=== PATIENT | female | born 1965 | race Caucasian/White ===

== ENCOUNTER 2019-09-05 15:24 | Outpatient (CLI) | payer OTHER ==
--- NOTE | 2019-09-05 16:16 | CT ---
CT OF THE CHEST WITH IV CONTRAST INDICATION: History of breast cancer with right-sided supraclavicular mass; bilateral supraclavicular regions have been swollen for years but the right side seems more swollen as per the patient. COMPARISON: None FINDINGS: CHEST: Lungs: There are tree-in-bud nodules seen within the apical segment of the right lower lobe on image 51 of series 3. There is some tree-in-bud nodular opacities within the posterior medial segment of the left lower lobe as well as the posterior medial segment of the right lower lobe. Pleural space: No effusion. Mediastinum: No pathologically enlarged mediastinal, hilar or left axillary lymphadenopathy is eviden t. Within the right subclavicular region there is a 2.8 x 1.2 cm enlarged lymph node. There is a 1.7 cm lymph node within the right axilla. There is a 1.9 cm lymph node within the right axilla. Ther e are numerous mildly prominent lymph nodes within the right axillary region. No supraclavicular lymphadenopathy is evident. There is a partially calcified nodule within the inferior pole the right thyroid gland. Upper abdomen:There is prominent fatty infiltration of the liver. Osseous structures: There is a mixed lytic and sclerotic lesion within the posterior and central aspe ct of T12. This measures 1.9 cm. There is a suspected bony hemangioma within the left aspect of L2. Similar appearing lucency suspicious for hemangioma is seen within the manubrium. 2 such lesions are present, one measuring 1.2 cm and one measuring 0.9 cm. There is an additional suspicious lytic lesion within the right aspect of the T10 vertebra on image 67 of series 5 measuring 0.6 cm. There i s scattered degenerative and osteoarthritic changes. Soft tissues:Normal. IMPRESSION: 1. Enlarged lymph nodes of the right axillary region and right subclavicular region are suspicious fo r malignant lymphadenopathy. Lytic lesions involving T10 and T12 are suspicious for osseous metastatic disease. Dedicated PET/CT is recommended for further characterization. 2. Tree-in-bud nodularity involving both lower lobes is suspicious for peripheral bronchiolitis. Mitch mmend correlation with the patient's clinical symptoms and appropriate therapy if necessary. Follow-up CT examination in 6-8 weeks is recommended to document resolution as no lymphobronchial met astatic disease cannot be entirely excluded. 3. Prominent fatty infiltration of the liver. 4. Suspected bony hemangioma is of L2 and the manubrium.
== END 2019-09-05 15:25 | disposition home or self-care (01) ==
LOC: BICCT 15:24
PROVIDERS: ATTEND Family Medicine
DX: R22.2 Localized swelling, mass and lump, trunk (principal); R60.0 Localized edema
CPT/HCPCS: 71260

== ENCOUNTER 2019-09-14 07:42 | Outpatient (CLI) | payer OTHER ==
--- NOTE | 2019-09-14 09:39 | PET ---
PET SCAN WITH CT ATTENUATION CORRECTION: HISTORY: Abnormal chest CT. Enlarged lymph nodes in the right axilla as well as abnormal lesions in the thorac ic and lumbar vertebrae. Unknown primary. TECHNIQUE: PET scan with CT attenuation correction is performed from base of the brain to the proximal thighs fo llowing the intravenous administration of 11.8 mCi which is of [id number]. FINDINGS: Head and neck: No abnormal FDG localization. Chest: No abnormal FDG localization in the mediastinum or lung parenchyma. Multiple hypermetabolic le ft axillary lymph nodes with a maximum SUV ranging between 3.7 and 6.0. Abdomen pelvis: No abnormal FDG localization. Osseous structures: Increased FDG localization of the T11 vertebral body with a maximum SUV of 3.1, T 12 with a maximum SUV of 3.5, L3 with a maximum SUV of 3.4 and S1 with a maximum SUV of 4.1. IMPRESSION: 1. Hypermetabolic right axillary lymph nodes which may be amenable to ultrasound-guided biopsy. 2. Multifocal hypermetabolic foci in the distal thoracic and lumbar spine as well as the sacrum as de scribed above. Transcribed Date/Time: 09/14/2019 9:55 AM
== END 2019-09-14 07:43 | disposition home or self-care (01) ==
LOC: PET 07:42
PROVIDERS: ATTEND Internal Medicine Hematology & Oncology
DX: C50.919 Malignant neoplasm of unspecified site of unspecified female breast (principal); C79.51 Secondary malignant neoplasm of bone
CPT/HCPCS: 78815; A9552

== ENCOUNTER 2019-09-18 12:10 | Day surgery (SDC) | payer OTHER ==
[2019-09-18 13:14] LABS: PTT 24.4 SEC (22.9-36.1); Prothrombin Time 13.5 SEC (12.0-14.7)
[2019-09-18] MEDS ORDERED: Lidocaine 1% PF 5 ML VIAL ONE (13:14)
--- NOTE | 2019-09-18 14:04 | ULT ---
ULTRASOUND-GUIDED RIGHT AXILLARY LYMPH NODE BIOPSY: CLINICAL HISTORY: Right axillary adenopathy. PROCEDURE: Informed consent was obtained and the patient was placed in the supine position, the skin and soft ti ssues prepped and draped in standard sterile fashion and topical anesthesia achieved with 1% lidocaine. Subsequently, utilizing a 20-gauge needle, 2 separate FNA procedures under ultrasound guid ance were performed, with appropriate location confirmed with real-time sonographic imaging and imaging was stored fragmentation. The specimens were provided to the attending pathologist and were d eemed adequate for interpretation. All devices were removed from the patient. Hemostasis was achieved. No procedural complications were evident. The patient was discharged in stable condition. IMPRESSION: Technically successful ultrasound-guided biopsy of right axillary lymph nodes. Pathology results are pending. Transcribed Date/Time: 09/18/2019 2:10 PM
[2019-09-18 15:16] VITALS: BP 172/96; TEMP 98.6
[2019-09-18 15:25] VITALS: BMI 30.9
== END 2019-09-18 13:55 | disposition home or self-care (01) ==
LOC: ULT 12:10
PROVIDERS: ATTEND Internal Medicine Hematology & Oncology
PROC: BW41ZZZ Ultrasonography of Abdomen and Pelvis (ICD-10-PCS; principal; 2019-09-18)
PROC: 07JN3ZZ Inspection of Lymphatic, Percutaneous Approach (ICD-10-PCS; principal; 2019-09-18)
DX: R59.0 Localized enlarged lymph nodes (principal); Z79.899 Other long term (current) drug therapy
CPT/HCPCS: 38505; 85610; 85730; 88173; 88184; 88305; 88333; 88334; J2001

== ENCOUNTER 2019-10-13 21:33 | Emergency (ER) | payer OTHER ==
[2019-10-13] MEDS ORDERED: Adacel (T-DAP) 0.5 ML SYRINGE ONE (22:22)
--- NOTE | 2019-10-13 22:29 | RAD ---
XR Shoulder Lt 3 View STANDARD HISTORY: Injury to shoulder COMPARISON: None. FINDINGS: There is a nondisplaced fracture of the left humeral neck and greater tuberosity. IMPRESSION: Left humeral neck and greater tuberosity fracture.
[2019-10-13] MEDS ORDERED: Lidocaine 1% w/Epinephrine 1:100K 20 ML VIAL ONE (22:43)
[2019-10-13] MEDS ORDERED: HYDROcodone/Acetaminophen 10/325 mg Tablet ONE (22:46)
== END 2019-10-13 23:27 | disposition home or self-care (01) ==
LOC: ERS 21:33
DX: S42.255A Nondisplaced fracture of greater tuberosity of left humerus, initial encounter for closed fracture (principal); S01.01XA Laceration without foreign body of scalp, initial encounter; S01.112A Laceration without foreign body of left eyelid and periocular area, initial encounter; I10 Essential (primary) hypertension; Z23 Encounter for immunization; Z79.899 Other long term (current) drug therapy; W01.0XXA Fall on same level from slipping, tripping and stumbling without subsequent striking against object, initial encounter
CPT/HCPCS: 12013; 90471; 90715

== ENCOUNTER 2020-10-31 14:01 | Outpatient (CLI) | payer OTHER ==
--- NOTE | 2020-10-31 14:26 | RAD ---
RIGHT HIP TWO VIEWS: 10/31/20 HISTORY: Hip pain. No evidence of fracture. No osseous abnormality. Joint space is maintained. IMPRESSION: No acute findings. POS: AH
== END 2020-10-31 14:02 | disposition home or self-care (01) ==
LOC: BICRAD 14:01
PROVIDERS: ATTEND Family Medicine
DX: M25.551 Pain in right hip (principal)

== ENCOUNTER 2020-12-16 11:32 | Outpatient (CLI) | payer OTHER ==
--- NOTE | 2020-12-16 14:39 | PET ---
Nuclear medicine FDG PET/CT: (Positron emission tomography and computed tomography) DATE: 12/16/2020 HISTORY: 55-year-old female with metastatic breast cancer. Osseous metastasis. Follow-up for response to treatment. Restaging. C 50.211, C 79.51 COMPARISON: 09/14/2019 TECHNIQUE: IV injection of F-18 fluorodeoxyglucose (FDG) dose: 11.1 mCi. PET scan and attenuation correction CT performed from skull base to proximal thighs. FINDINGS: SUV (standard uptake values) numbers given are maximum SUVs. QCLR used. Attenuation correction CT demonstrates a new finding of a large number of focal sclerotic osseous les ions representing osteoblastic metastases. These are mostly of relatively low FDG uptake suggesting treated, sclerotic metastatic lesions. For example, there was a lesion at the T12 vertebral body with SUV of 5.3 previously. Currently, T12 has new extensive sclerotic lesions, but SUV of 2.3 (below threshold of 2.5). L3 had previous SUV of 5.6, but currently only 2.5, with new extensive osteoblastic lesions. Previous S2 sacral body lesion at SUV of 6.6. Currently, it has become sclerotic, with SUV of 2.3, be low threshold. Multiple other sclerotic osteoblastic lesions, also without significantly increased uptake, in the le ft ilium, many other levels throughout the thoracic and lumbar spine, and ribs. Previously, right far lateral supraclavicular 3 x 2.5 cm mass had SUV of 8.0. It is now approximately 5 x 4.5 cm. The SUV has decreased to 5.6. The margins have become fuzzy. This is questionably a level 5B matted conglomeration of nodes. A few hypermetabolic satellite small nodules are present, including a 1 x 1.2 cm right level 3 or 4 c ervical lymph node with SUV of 4.1. The previously enlarged right axillary lymph nodes that were hypermetabolic have decreased in size. T here is no longer surrounding fat stranding representing edema. There are currently somewhat prominent bilateral axillary lymph nodes, but many of them have benign-a ppearing fatty jj. One of the larger right axillary lymph nodes is 1 x 1.5 cm, with SUV of 1.0, not hypermetabolic. A round 1.2 x 0.9 cm left axillary lymph node is not hypermetabolic, SUV 1.6. Superior and lateral to that, there is a approximately 2 x 1 cm morphologically benign left axillary lymph node with a fatty hilum, that is actually mildly hypermetabolic with SUV of 2.7. There are bilateral breast implants. No hypermetabolic activity in the breasts. In the anterior upper portion of the liver, probably hepat ic segment 4A, or possibly segment 8, there is a small focus of FDG uptake that appears slightly greater than background liver activity. This area has SUV of 3.9 while background liver uptake has ALVARADO V of 3.3. There is another small area in the left lobe of the liver in hepatic segment 3 with SUV of 3.9. No other areas of abnormally increased FDG uptake in the rest of the abdominal cavity and pelvic cavi ty and upper neck. 5 mm stone at right renal lower pole. Diffusely low hepatic attenuation consistent with fatty liver. Moderately high density material in the dependent portion of gallbladder lumen could represent gallst ones or sludge. IMPRESSION: 1) new finding of large number of sclerotic, osteoblastic metastatic skeletal lesions in the thoracic spine, lumbar spine, ribs, sacrum, and left ilium, without significantly increased FDG uptake, probably representing quiescent, treated osseous metastatic lesions. 2) the large right far lateral supraclavicular previously very hypermetabolic mass, presumably repres enting conglomeration of right level 5B metastatic lymph nodes, has become larger, but less dense and with lower FDG uptake. There is a new hypermetabolic small adjacent satellite lymph node. 3) interval resolution of the hypermetabolic activity and decrease in size of right axillary lymph no tory. 4) currently, the only axillary lymph node with FDG uptake above the threshold is a morphologically b enign-appearing left axillary lesion with SUV of 2.7. New. 5) 2 small foci of slightly increased uptake in the liver relative to background activity. Uncertain whether or not these represent metastatic lesions. MRI of the liver with and without contrast, multiphase, may be useful. 6) overall partial response to therapy, plus questionable new lesions. 7) hepatic steatosis. 8) cholelithiasis versus gallbladder sludge. 9) nephrolithiasis consisting of a single right renal lower pole calculus.
== END 2020-12-16 11:33 | disposition home or self-care (01) ==
LOC: PET 11:32
PROVIDERS: ATTEND Internal Medicine Hematology & Oncology
DX: C50.211 Malignant neoplasm of upper-inner quadrant of right female breast (principal); C79.51 Secondary malignant neoplasm of bone; M89.9 Disorder of bone, unspecified; K76.0 Fatty (change of) liver, not elsewhere classified; N20.0 Calculus of kidney
CPT/HCPCS: 78815; A9552

== ENCOUNTER 2020-12-30 11:38 | Outpatient (CLI) | payer OTHER ==
[2020-12-30 13:42] LABS: Anion Gap 13 mmol/L (10-20); BUN (Urea Nitrogen) 9 mg/dL (9.8-20.1); Calc. Creatinine Clearance 0 mL/min (70-130); Calcium 8.8 mg/dL (7.8-10.44); Carbon Dioxide 31 mmol/L (22-29); Chloride 101 mmol/L (98-107); Glucose 143 mg/dL (70-105); Potassium 3.5 mmol/L (3.5-5.1); Sodium 141 mmol/L (136-145)
[2020-12-30 13:58] LABS: Platelet Count 91 10x3/uL (150-450)
[2020-12-30 13:59] LABS: #Eosinphils 0.1 10x3/uL (0.0-0.5); #Monocytes 0.4 10x3/uL (0.0-1.1); %Basophils 0.7 % (0.0-2.0); %Eosinophils 1.4 % (0.0-6.0); %Lymphocytes 40.3 % (18.0-47.0); %Monocytes 8.5 % (0.0-10.0); %Neutrophils 48.6 % (40.0-75.0); Mean Corpuscular HGB CONC 32.8 g/dL (32.0-36.0); Mean Corpuscular Hemoglobin 33.2 pg (27.0-33.0); Mean Platelet Volume 10.7 fl (7.4-10.4); RBC Distribution Width 11.9 % (11.5-14.5); Red Blood Cell (RBC) Count 3.92 10x6/uL (3.90-5.03); White Blood Cell (WBC) Count 4.1 10x3/uL (3.5-10.5)
[2020-12-30 14:13] LABS: Platelet Morphology Comment Appears Decreased; RBC Morphology Normal
[2020-12-31 02:20] LABS: SARS-CoV-2 PCR by NAA Not Detected (NotDetected)
== END 2020-12-30 11:39 | disposition home or self-care (01) ==
LOC: LABBT 11:38
PROVIDERS: ATTEND Surgery
DX: Z01.818 Encounter for other preprocedural examination (principal); C50.919 Malignant neoplasm of unspecified site of unspecified female breast; Z20.822 Contact with and (suspected) exposure to COVID-19
CPT/HCPCS: 80048; 85025; 87635; 93005; 93010; U0003; U0005

== ENCOUNTER 2021-01-02 09:47 | Day surgery (SDC) | payer OTHER ==
[2020-12-31 15:54] VITALS: BMI 31.9
[2021-01-02] MEDS ORDERED: Ketorolac Tromethamine 30 MG/ML VIAL ONE (10:02)
[2021-01-02] MEDS ORDERED: Acetaminophen 500 MG TAB ONE (10:02)
[2021-01-02] MEDS ORDERED: Fentanyl 100 MCG/2 ML VIAL ONE (13:46)
[2021-01-02] MEDS ORDERED: Propofol 500 MG/50 ML VIAL ONE (13:46)
[2021-01-02] MEDS ORDERED: Lidocaine 1% w/Epinephrine 1:100K 20 ML VIAL ONE (13:51)
[2021-01-02] MEDS ORDERED: Bupivacaine 0.25% HCL 30 ML VIAL ONE (13:51)
[2021-01-02] MEDS ORDERED: PROPOFOL 200 MG/20 ML VIAL ONE (14:07)
[2021-01-02] MEDS ORDERED: Lidocaine 1% PF 5 ML VIAL ONE (14:07)
== END 2021-01-02 15:23 | disposition home or self-care (01) ==
LOC: SDC 09:47
PROVIDERS: ATTEND Surgery
PROC: 02HV33Z Insertion of Infusion Device into Superior Vena Cava, Percutaneous Approach (ICD-10-PCS; principal; 2021-01-02)
DX: C50.911 Malignant neoplasm of unspecified site of right female breast (principal); C79.9 Secondary malignant neoplasm of unspecified site; Z79.899 Other long term (current) drug therapy
CPT/HCPCS: 71045; C1788; J0690; J1642; J1885; J2704; J3010; S0020

== ENCOUNTER 2021-01-09 13:07 | Day surgery (SDC) | payer OTHER ==
[~2021-01-09 13:07] MED LIST: Famotidine/PF 20 mg/2ml Vial SLOW IVP SCH; PACLITAXEL IVPB SCH; SODIUM CHLORIDE 0.9% IVPB SCH; Zoledronic Acid 4 MG in Sodium Chloride 0.9% 100 ML IVPB SCH
[2021-01-09] MEDS ORDERED: Sodium Chloride 0.9% 20 ML ONE (15:29)
[2021-01-09] MEDS ORDERED: diphenhydrAMINE 50 MG/ML VIAL ONE (16:32)
[2021-01-09] MEDS ORDERED: cloNIDine 0.2 MG TAB PO SCH (17:15)
[2021-01-09 18:43] VITALS: TEMP 97.9
[2021-01-09 19:06] VITALS: BP 162/94
== END 2021-01-09 19:02 | disposition home or self-care (01) ==
LOC: ONC/OP 13:07
PROVIDERS: ATTEND Internal Medicine Hematology & Oncology
DX: Z51.11 Encounter for antineoplastic chemotherapy (principal); C50.211 Malignant neoplasm of upper-inner quadrant of right female breast; C79.51 Secondary malignant neoplasm of bone
CPT/HCPCS: 96366; 96375; 96413; 96415; 99212; G0463; J1100; J1200; J1642; J3489; J3490; J7030; J9267; S0028

== ENCOUNTER 2021-01-15 11:24 | Day surgery (SDC) | payer OTHER ==
[~2021-01-15 11:24] MED LIST changes: +Acetaminophen 500 MG TAB PO SCH; +Dexamethasone 10 MG/ML VIAL SLOW IVP SCH; -Famotidine/PF 20 mg/2ml Vial SLOW IVP SCH; -PACLITAXEL IVPB SCH; +PACLitaxel 160 MG in Sodium Chloride 0.9% 250 ML 250 ML IVPB SCH; -SODIUM CHLORIDE 0.9% IVPB SCH; -Zoledronic Acid 4 MG in Sodium Chloride 0.9% 100 ML IVPB SCH; +diphenhydrAMINE 50 MG/ML VIAL IVP SCH
[2021-01-15 12:08] VITALS: BP 179/84
[2021-01-15] MEDS ORDERED: Famotidine/PF 20 mg/2ml Vial SLOW IVP SCH (12:30)
[2021-01-15] MEDS ORDERED: Sodium Chloride 0.9% 20 ML ONE (13:33)
== END 2021-01-15 13:36 | disposition home or self-care (01) ==
LOC: ONC/OP 11:24
PROVIDERS: ATTEND Internal Medicine Hematology & Oncology
DX: Z51.11 Encounter for antineoplastic chemotherapy (principal); C50.211 Malignant neoplasm of upper-inner quadrant of right female breast; C79.51 Secondary malignant neoplasm of bone
CPT/HCPCS: 96375; 96413; J1100; J1200; J1642; J7050; J9267; S0028

== ENCOUNTER 2021-01-29 13:58 | Day surgery (SDC) | payer OTHER ==
[~2021-01-29 13:58] MED LIST changes: +Acetaminophen 500 MG TAB PO PRN; -Acetaminophen 500 MG TAB PO SCH; -Dexamethasone 10 MG/ML VIAL SLOW IVP SCH; +Famotidine/PF 20 mg/2ml Vial SLOW IVP SCH; +Pegfilgrastim Onpro 6 MG/0.6 ML SQ SCH; +diphenhydrAMINE 25 MG in Sodium Chloride 0.9% 50 ML IVPB PRN; -diphenhydrAMINE 50 MG/ML VIAL IVP SCH
[2021-01-29] MEDS ORDERED: Sodium Chloride 0.9% 20 ML ONE (14:13)
[2021-01-29 14:43] VITALS: BP 185/85
[2021-01-29 15:18] VITALS: TEMP 98.6
== END 2021-01-29 16:16 | disposition home or self-care (01) ==
LOC: ONC/OP 13:58 → EEVIPCON 15:00 → ONC/OP 16:16
PROVIDERS: ATTEND Internal Medicine Hematology & Oncology
DX: Z51.11 Encounter for antineoplastic chemotherapy (principal); C50.211 Malignant neoplasm of upper-inner quadrant of right female breast; C79.51 Secondary malignant neoplasm of bone
CPT/HCPCS: 96375; 96377; 96413; J1100; J1200; J1642; J2505; J7050; J9267; S0028

== ENCOUNTER 2021-02-12 10:10 | Day surgery (SDC) | payer OTHER ==
[~2021-02-12 10:10] MED LIST changes: -Acetaminophen 500 MG TAB PO PRN; +Acetaminophen 500 MG TAB PO SCH; +Famotidine/PF 20 MG in Sodium Chloride 0.9% 50 ML IVPB SCH; -Famotidine/PF 20 mg/2ml Vial SLOW IVP SCH; -Pegfilgrastim Onpro 6 MG/0.6 ML SQ SCH; -diphenhydrAMINE 25 MG in Sodium Chloride 0.9% 50 ML IVPB PRN; +diphenhydrAMINE 25 MG in Sodium Chloride 0.9% 50 ML IVPB SCH
[2021-02-12] MEDS ORDERED: Sodium Chloride 0.9% 20 ML ONE (11:40)
[2021-02-12 12:30] VITALS: BP 170/89; TEMP 98.2
== END 2021-02-12 13:06 | disposition home or self-care (01) ==
LOC: ONC/OP 10:10 → EEVIPCON 14:00
PROVIDERS: ATTEND Internal Medicine Hematology & Oncology
DX: Z51.11 Encounter for antineoplastic chemotherapy (principal); C50.211 Malignant neoplasm of upper-inner quadrant of right female breast; C79.51 Secondary malignant neoplasm of bone
CPT/HCPCS: 96375; 96413; J1100; J1200; J1642; J7050; J9267; S0028

== ENCOUNTER 2021-02-19 14:56 | Day surgery (SDC) | payer OTHER ==
[~2021-02-19 14:56] MED LIST changes: +Acetaminophen 500 MG TAB PO PRN; -Acetaminophen 500 MG TAB PO SCH; -Famotidine/PF 20 MG in Sodium Chloride 0.9% 50 ML IVPB SCH; +Famotidine/PF 20 mg/2ml Vial SLOW IVP SCH; +diphenhydrAMINE 25 MG in Sodium Chloride 0.9% 50 ML IVPB PRN; -diphenhydrAMINE 25 MG in Sodium Chloride 0.9% 50 ML IVPB SCH
[2021-02-19] MEDS ORDERED: Sodium Chloride 0.9% 20 ML ONE (15:25)
[2021-02-19 16:57] VITALS: BP 156/72; TEMP 97.7
== END 2021-02-19 17:54 | disposition home or self-care (01) ==
LOC: ONC/OP 14:56
PROVIDERS: ATTEND Internal Medicine Hematology & Oncology
DX: Z51.11 Encounter for antineoplastic chemotherapy (principal); C50.211 Malignant neoplasm of upper-inner quadrant of right female breast; C79.51 Secondary malignant neoplasm of bone; Z17.0 Estrogen receptor positive status [ER+]
CPT/HCPCS: 96375; 96413; J1100; J1200; J1642; J7050; J9267; S0028

== ENCOUNTER → 2021-03-05 | Day surgery (SDC) | payer OTHER ==
[~2021-03-05] MED LIST changes: -Acetaminophen 500 MG TAB PO PRN; +Acetaminophen 500 MG TAB PO SCH; +Dexamethasone 10 MG/ML VIAL SLOW IVP SCH; +Sodium Chloride 0.9% 20 ML ONE; -diphenhydrAMINE 25 MG in Sodium Chloride 0.9% 50 ML IVPB PRN; +diphenhydrAMINE 25 MG in Sodium Chloride 0.9% 50 ML IVPB SCH; +diphenhydrAMINE 50 MG/ML VIAL IVP SCH
[2021-03-05 13:33] VITALS: BP 175/99; TEMP 98.1
== END ==
LOC: EEVIPCON 02-26 13:00 → ONC/OP 10:03
PROVIDERS: ATTEND Internal Medicine Hematology & Oncology
DX: Z51.11 Encounter for antineoplastic chemotherapy (principal); C50.211 Malignant neoplasm of upper-inner quadrant of right female breast; C79.51 Secondary malignant neoplasm of bone
CPT/HCPCS: 96375; 96413; J1100; J1200; J1642; J7050; J9267; S0028

== ENCOUNTER 2021-03-12 13:34 | Day surgery (SDC) | payer OTHER ==
[~2021-03-12 13:34] MED LIST changes: +Acetaminophen 500 MG TAB PO PRN; -Acetaminophen 500 MG TAB PO SCH; -Dexamethasone 10 MG/ML VIAL SLOW IVP SCH; +Pegfilgrastim Onpro 6 MG/0.6 ML SQ SCH; -Sodium Chloride 0.9% 20 ML ONE; +diphenhydrAMINE 25 MG in Sodium Chloride 0.9% 50 ML IVPB PRN; -diphenhydrAMINE 25 MG in Sodium Chloride 0.9% 50 ML IVPB SCH; -diphenhydrAMINE 50 MG/ML VIAL IVP SCH
[2021-03-12] MEDS ORDERED: Sodium Chloride 0.9% 20 ML ONE (13:40)
[2021-03-12 15:46] VITALS: BP 188/84
== END 2021-03-12 15:48 | disposition home or self-care (01) ==
LOC: ONC/OP 13:34
PROVIDERS: ATTEND Internal Medicine Hematology & Oncology
DX: Z51.11 Encounter for antineoplastic chemotherapy (principal); C50.211 Malignant neoplasm of upper-inner quadrant of right female breast; C79.51 Secondary malignant neoplasm of bone
CPT/HCPCS: 96372; 96375; 96377; 96413; J1100; J1200; J1642; J2505; J7050; J9267; S0028

== ENCOUNTER 2021-03-26 14:06 | Day surgery (SDC) | payer OTHER ==
[~2021-03-26 14:06] MED LIST changes: -Pegfilgrastim Onpro 6 MG/0.6 ML SQ SCH; +Sodium Chloride 0.9% 20 ML ONE
[2021-03-26 15:48] VITALS: BP 172/90
== END 2021-03-26 16:42 | disposition home or self-care (01) ==
LOC: ONC/OP 14:06
PROVIDERS: ATTEND Internal Medicine Hematology & Oncology
DX: Z51.11 Encounter for antineoplastic chemotherapy (principal); C50.211 Malignant neoplasm of upper-inner quadrant of right female breast; C79.51 Secondary malignant neoplasm of bone; Z17.0 Estrogen receptor positive status [ER+]
CPT/HCPCS: 96375; 96413; J1100; J1200; J1642; J7050; J9267; S0028

== ENCOUNTER → 2021-03-27 | Day surgery (SDC) | payer OTHER ==
[~2021-03-27] MED LIST changes: -Acetaminophen 500 MG TAB PO PRN; -Famotidine/PF 20 mg/2ml Vial SLOW IVP SCH; +Iopamidol 300 61% 50 ML VIAL FS ONE; -PACLitaxel 160 MG in Sodium Chloride 0.9% 250 ML 250 ML IVPB SCH; -Sodium Chloride 0.9% 20 ML ONE; -diphenhydrAMINE 25 MG in Sodium Chloride 0.9% 50 ML IVPB PRN
== END ==
LOC: SPEC 15:03
PROVIDERS: ATTEND Internal Medicine Hematology & Oncology
DX: T82.598A Other mechanical complication of other cardiac and vascular devices and implants, initial encounter (principal); T82.848A Pain due to vascular prosthetic devices, implants and grafts, initial encounter; C50.211 Malignant neoplasm of upper-inner quadrant of right female breast; C79.51 Secondary malignant neoplasm of bone
CPT/HCPCS: 36598; J1642; Q9967

== ENCOUNTER 2021-03-30 15:41 | Outpatient (CLI) | payer OTHER | END 2021-03-30 15:42 | disposition home or self-care (01) | LOC: BICULT 15:41 | PROVIDERS: ATTEND Internal Medicine Hematology & Oncology | DX: R22.1 Localized swelling, mass and lump, neck (principal) | CPT/HCPCS: 76999 ==

== ENCOUNTER 2021-04-02 13:41 | Day surgery (SDC) | payer OTHER ==
[~2021-04-02 13:41] MED LIST changes: +Acetaminophen 500 MG TAB PO SCH; +Dexamethasone 10 MG/ML VIAL SLOW IVP SCH; +Famotidine/PF 20 mg/2ml Vial SLOW IVP SCH; -Iopamidol 300 61% 50 ML VIAL FS ONE; +PACLitaxel 160 MG in Sodium Chloride 0.9% 250 ML 250 ML IVPB SCH; +Pegfilgrastim Onpro 6 MG/0.6 ML SQ SCH; +diphenhydrAMINE 25 MG in Sodium Chloride 0.9% 50 ML IVPB PRN; +diphenhydrAMINE 50 MG/ML VIAL IVP SCH
[2021-04-02] MEDS ORDERED: Sodium Chloride 0.9% 20 ML ONE (15:25)
[2021-04-02 15:50] VITALS: BP 135/62
== END 2021-04-02 16:59 | disposition home or self-care (01) ==
LOC: ONC/OP 13:41
PROVIDERS: ATTEND Internal Medicine Hematology & Oncology
DX: Z51.11 Encounter for antineoplastic chemotherapy (principal); C50.211 Malignant neoplasm of upper-inner quadrant of right female breast; C79.51 Secondary malignant neoplasm of bone
CPT/HCPCS: 96375; 96377; 96413; J1100; J1200; J1642; J2505; J7050; J9267; S0028

== ENCOUNTER 2021-04-16 08:37 | Day surgery (SDC) | payer OTHER ==
[~2021-04-16 08:37] MED LIST changes: +Acetaminophen 500 MG TAB PO PRN; -Acetaminophen 500 MG TAB PO SCH; -Dexamethasone 10 MG/ML VIAL SLOW IVP SCH; -Famotidine/PF 20 mg/2ml Vial SLOW IVP SCH; -PACLitaxel 160 MG in Sodium Chloride 0.9% 250 ML 250 ML IVPB SCH; -Pegfilgrastim Onpro 6 MG/0.6 ML SQ SCH; -diphenhydrAMINE 25 MG in Sodium Chloride 0.9% 50 ML IVPB PRN; -diphenhydrAMINE 50 MG/ML VIAL IVP SCH
[2021-04-16] MEDS ORDERED: Famotidine/PF 20 mg/2ml Vial SLOW IVP SCH (08:45)
[2021-04-16] MEDS ORDERED: Zoledronic Acid 4 MG in Sodium Chloride 0.9% 100 ML IVPB SCH (08:45)
[2021-04-16] MEDS ORDERED: diphenhydrAMINE 50 MG/ML VIAL IVP SCH (08:45)
[2021-04-16] MEDS ORDERED: PACLitaxel 160 MG in Sodium Chloride 0.9% 250 ML 250 ML IVPB SCH (08:45)
[2021-04-16] MEDS ORDERED: Dexamethasone 10 MG/ML VIAL SLOW IVP SCH (08:45)
[2021-04-16] MEDS ORDERED: diphenhydrAMINE 25 MG in Sodium Chloride 0.9% 50 ML IVPB PRN (08:48)
[2021-04-16] MEDS ORDERED: Acetaminophen 500 MG TAB PO SCH (09:00)
[2021-04-16] MEDS ORDERED: Sodium Chloride 0.9% 20 ML ONE (12:27)
== END 2021-04-16 14:36 | disposition home or self-care (01) ==
LOC: ONC/OP 08:37
PROVIDERS: ATTEND Internal Medicine Hematology & Oncology
DX: Z51.11 Encounter for antineoplastic chemotherapy (principal); C50.211 Malignant neoplasm of upper-inner quadrant of right female breast; C79.51 Secondary malignant neoplasm of bone; Z17.0 Estrogen receptor positive status [ER+]; Z79.83 Long term (current) use of bisphosphonates
CPT/HCPCS: 96367; 96375; 96413; J1100; J1200; J1642; J3489; J3490; J7050; J9267; S0028

== ENCOUNTER 2021-04-23 08:34 | Day surgery (SDC) | payer OTHER ==
[~2021-04-23 08:34] MED LIST changes: +Famotidine/PF 20 mg/2ml Vial SLOW IVP SCH; +PACLitaxel 160 MG in Sodium Chloride 0.9% 250 ML 250 ML IVPB SCH; +Pegfilgrastim Onpro 6 MG/0.6 ML SQ SCH; +diphenhydrAMINE 25 MG CAP PO PRN; +diphenhydrAMINE 25 MG in Sodium Chloride 0.9% 50 ML IVPB PRN
[2021-04-23] MEDS ORDERED: Sodium Chloride 0.9% 30 ML ONE (08:38)
[2021-04-23 10:09] LABS: Iron 42 ug/dL (50-170); Iron Binding Capacity, Total 293 mcg/dL (265-497)
[2021-04-23 10:34] LABS: Ferritin 1503.44 ng/mL (10-291)
[2021-04-23 12:34] VITALS: TEMP 97.6
[2021-04-23 13:52] VITALS: BP 161/80
== END 2021-04-23 13:59 | disposition home or self-care (01) ==
LOC: ONC/OP 08:34
PROVIDERS: ATTEND Internal Medicine Hematology & Oncology
PROC: 30233N1 Transfusion of Nonautologous Red Blood Cells into Peripheral Vein, Percutaneous Approach (ICD-10-PCS; principal; 2021-04-23)
DX: Z51.11 Encounter for antineoplastic chemotherapy (principal); C50.211 Malignant neoplasm of upper-inner quadrant of right female breast; C79.51 Secondary malignant neoplasm of bone; D63.0 Anemia in neoplastic disease; D69.6 Thrombocytopenia, unspecified
CPT/HCPCS: 36415; 36430; 82607; 82728; 82746; 83540; 83550; 86850; 86900; 86901; 96375; 96377; 96413; J1100; J1200; J1642; J2505; J7050; J9267; P9016; Q0163; S0028

== ENCOUNTER 2021-05-01 09:36 | Outpatient (CLI) | payer OTHER | END 2021-05-01 09:37 | disposition home or self-care (01) | LOC: PET 09:36 | PROVIDERS: ATTEND Internal Medicine Hematology & Oncology | DX: C50.211 Malignant neoplasm of upper-inner quadrant of right female breast (principal); C79.51 Secondary malignant neoplasm of bone; R91.8 Other nonspecific abnormal finding of lung field | CPT/HCPCS: 78815; A9552 ==

== ENCOUNTER 2021-06-18 14:23 | Day surgery (SDC) | payer OTHER ==
[~2021-06-18 14:23] MED LIST changes: -Acetaminophen 500 MG TAB PO PRN; +Acetaminophen 500 MG TAB PO SCH; +Dexamethasone 10 MG/ML VIAL SLOW IVP SCH; -Pegfilgrastim Onpro 6 MG/0.6 ML SQ SCH; -diphenhydrAMINE 25 MG CAP PO PRN; +diphenhydrAMINE 50 MG/ML VIAL IVP SCH
[2021-06-18] MEDS ORDERED: Sodium Chloride 0.9% 20 ML ONE (14:34)
[2021-06-18 15:33] VITALS: BP 107/67; TEMP 98.1
== END 2021-06-18 16:36 | disposition home or self-care (01) ==
LOC: ONC/OP 14:23
PROVIDERS: ATTEND Internal Medicine Hematology & Oncology
DX: Z51.11 Encounter for antineoplastic chemotherapy (principal); C50.211 Malignant neoplasm of upper-inner quadrant of right female breast; C79.51 Secondary malignant neoplasm of bone
CPT/HCPCS: 96375; 96413; J1100; J1200; J1642; J7050; J9267; S0028

== ENCOUNTER 2021-06-22 14:31 | Outpatient (CLI) | payer OTHER ==
[~2021-06-22 14:31] MED LIST changes: -Acetaminophen 500 MG TAB PO SCH; -Dexamethasone 10 MG/ML VIAL SLOW IVP SCH; -Famotidine/PF 20 mg/2ml Vial SLOW IVP SCH; +Iopamidol 370 76% 100 ML VIAL ONE; -PACLitaxel 160 MG in Sodium Chloride 0.9% 250 ML 250 ML IVPB SCH; -diphenhydrAMINE 25 MG in Sodium Chloride 0.9% 50 ML IVPB PRN; -diphenhydrAMINE 50 MG/ML VIAL IVP SCH
== END 2021-06-22 14:32 | disposition home or self-care (01) ==
LOC: BICCT 14:31
PROVIDERS: ATTEND Internal Medicine Hematology & Oncology
DX: C50.211 Malignant neoplasm of upper-inner quadrant of right female breast (principal); C79.51 Secondary malignant neoplasm of bone; R91.8 Other nonspecific abnormal finding of lung field
CPT/HCPCS: 71260; Q9967

== ENCOUNTER 2021-07-02 09:05 | Day surgery (SDC) | payer OTHER ==
[~2021-07-02 09:05] MED LIST changes: +Acetaminophen 500 MG TAB PO PRN; +Dexamethasone 10 MG/ML VIAL SLOW IVP SCH; +Famotidine/PF 20 mg/2ml Vial SLOW IVP SCH; -Iopamidol 370 76% 100 ML VIAL ONE; +PACLitaxel 160 MG in Sodium Chloride 0.9% 250 ML 250 ML IVPB SCH; +diphenhydrAMINE 25 MG in Sodium Chloride 0.9% 50 ML IVPB PRN; +diphenhydrAMINE 50 MG/ML VIAL IVP SCH
[2021-07-02 11:43] VITALS: BP 135/66; TEMP 97.4
== END 2021-07-02 14:50 | disposition home or self-care (01) ==
LOC: ONC/OP 09:05
PROVIDERS: ATTEND Internal Medicine Hematology & Oncology
DX: Z51.11 Encounter for antineoplastic chemotherapy (principal); C50.211 Malignant neoplasm of upper-inner quadrant of right female breast; C79.51 Secondary malignant neoplasm of bone
CPT/HCPCS: 96375; 96413; J1100; J1200; J1642; J7050; J9267; S0028

== ENCOUNTER 2021-07-30 08:13 | Day surgery (SDC) | payer OTHER ==
[2021-07-30] MEDS ORDERED: diphenhydrAMINE 25 MG in Sodium Chloride 0.9% 50 ML IVPB PRN (08:47)
[2021-07-30] MEDS ORDERED: Acetaminophen 500 MG TAB PO PRN (08:47)
[2021-07-30] MEDS ORDERED: Famotidine/PF 20 mg/2ml Vial SLOW IVP SCH (09:00)
[2021-07-30] MEDS ORDERED: PACLitaxel 160 MG in Sodium Chloride 0.9% 250 ML 250 ML IVPB SCH (09:00)
[2021-07-30 16:59] VITALS: BP 138/86; TEMP 97.8
== END 2021-07-30 17:03 | disposition home or self-care (01) ==
LOC: ONC/OP 08:13
PROVIDERS: ATTEND Internal Medicine Hematology & Oncology
DX: Z51.11 Encounter for antineoplastic chemotherapy (principal); C50.211 Malignant neoplasm of upper-inner quadrant of right female breast; C79.51 Secondary malignant neoplasm of bone
CPT/HCPCS: 96375; 96413; J1100; J1200; J1642; J7050; J9267; S0028

== ENCOUNTER 2021-08-13 08:09 | Day surgery (SDC) | payer OTHER ==
[2021-08-13] MEDS ORDERED: Acetaminophen 500 MG TAB PO SCH (08:15)
[2021-08-13] MEDS ORDERED: diphenhydrAMINE 50 MG/ML VIAL IVP SCH (08:15)
[2021-08-13] MEDS ORDERED: Dexamethasone 10 MG/ML VIAL SLOW IVP SCH (08:15)
[2021-08-13] MEDS ORDERED: Zoledronic Acid 4 MG in Sodium Chloride 0.9% 100 ML IVPB SCH (08:15)
[2021-08-13] MEDS ORDERED: Famotidine/PF 20 mg/2ml Vial SLOW IVP SCH (08:15)
[2021-08-13] MEDS ORDERED: PACLitaxel 160 MG in Sodium Chloride 0.9% 250 ML 250 ML IVPB SCH (09:00)
[2021-08-13] MEDS ORDERED: diphenhydrAMINE 25 MG in Sodium Chloride 0.9% 50 ML IVPB SCH (09:15)
[2021-08-13] MEDS ORDERED: Sodium Chloride 0.9% 20 ML ONE (10:12)
[2021-08-13 10:20] VITALS: BP 175/86
== END 2021-08-13 11:56 | disposition home or self-care (01) ==
LOC: ONC/OP 08:09
PROVIDERS: ATTEND Internal Medicine Hematology & Oncology
DX: Z51.11 Encounter for antineoplastic chemotherapy (principal); C50.211 Malignant neoplasm of upper-inner quadrant of right female breast; C79.51 Secondary malignant neoplasm of bone
CPT/HCPCS: 96367; 96375; 96413; J1100; J1200; J1642; J3489; J3490; J7050; J9267; S0028

== ENCOUNTER 2021-08-27 08:57 | Outpatient (CLI) | payer OTHER | END 2021-08-27 08:58 | disposition home or self-care (01) | LOC: PET 08:57 | PROVIDERS: ATTEND Internal Medicine Hematology & Oncology | DX: C50.211 Malignant neoplasm of upper-inner quadrant of right female breast (principal); C79.51 Secondary malignant neoplasm of bone; C77.0 Secondary and unspecified malignant neoplasm of lymph nodes of head, face and neck | CPT/HCPCS: 78815; A9552 ==

== ENCOUNTER → 2021-11-12 | Day surgery (SDC) | payer BC, OTHER ==
[~2021-11-12] MED LIST changes: -Acetaminophen 500 MG TAB PO PRN; -Dexamethasone 10 MG/ML VIAL SLOW IVP SCH; +FLU VACC QS2021-22(6MOS UP)/PF 60 MCG/0.5 ML SYRINGE IM ONE; -Famotidine/PF 20 mg/2ml Vial SLOW IVP SCH; -PACLitaxel 160 MG in Sodium Chloride 0.9% 250 ML 250 ML IVPB SCH; +Sodium Chloride 0.9% 10 ML ONE; +Zoledronic Acid 4 MG in Sodium Chloride 0.9% 100 ML IVPB SCH; -diphenhydrAMINE 25 MG in Sodium Chloride 0.9% 50 ML IVPB PRN; -diphenhydrAMINE 50 MG/ML VIAL IVP SCH
== END ==
LOC: ONC/OP 08:45
PROVIDERS: ATTEND Internal Medicine Hematology & Oncology
DX: C50.211 Malignant neoplasm of upper-inner quadrant of right female breast (principal); C79.51 Secondary malignant neoplasm of bone; Z79.83 Long term (current) use of bisphosphonates
CPT/HCPCS: 96365; J1642; J3489; J3490

== ENCOUNTER 2021-12-11 12:21 | Day surgery (SDC) | payer BC ==
[2021-12-11 12:49] LABS: #Lymphocytes 1.5 thou/uL (1.20-3.40); #Monocytes 0.4 thou/uL (0.11-0.59); #Neutrophils 5.7 thou/uL (1.40-6.50); %Basophils 0.3 % (0.0-1.0); %Eosinophils 0.4 % (0.0-10.0); %Lymphocytes 19.1 % (21.0-51.0); %Neutrophils 75.2 % (42.0-75.0); Hemoglobin 11.2 g/dL (12.0-16.0); Mean Corpuscular HGB CONC 32.6 g/dL (32.0-36.0); Mean Corpuscular Hemoglobin 29.1 pg (27.0-31.0); Mean Corpuscular Volume 89.2 fL (78.0-98.0); Mean Platelet Volume 7.5 fL (7.4-10.4); Platelet Count 251 thou/uL (130-400); RBC Distribution Width 12.5 % (11.5-14.5); Red Blood Cell (RBC) Count 3.85 mill/uL (4.20-5.40); White Blood Cell (WBC) Count 7.6 thou/uL (4.8-10.8)
[2021-12-11] MEDS ORDERED: Sodium Chloride 0.9% 1,000 ML IV SCH (13:00)
[2021-12-11 13:13] LABS: ALT (SGPT) 17 U/L (8-55); AST (SGOT) 59 U/L (5-34); Albumin 3.6 g/dL (3.5-5.0); Alkaline Phosphatase 120 U/L (40-110); Anion Gap 16 mmol/L (10-20); BUN (Urea Nitrogen) 11 mg/dL (9.8-20.1); Bilirubin, Total 0.7 mg/dL (0.2-1.2); Calc. Creatinine Clearance 0 mL/min (70-130); Calcium 7.4 mg/dL (7.8-10.44); Carbon Dioxide 22 mmol/L (22-29); Chloride 102 mmol/L (98-107); Globulin 3.7 g/dL (2.4-3.5); Glucose 172 mg/dL (70-105); Protein, Total 7.3 g/dL (6.0-8.3); Sodium 137 mmol/L (136-145)
[2021-12-11 13:15] VITALS: BP 140/70; TEMP 98.3
[2021-12-11 13:41] LABS: Potassium 2.6 mmol/L (3.5-5.1)
[2021-12-11] MEDS ORDERED: Potassium Chloride 20 MEQ in Sodium Chloride 0.9% 250 ML 250 ML IVPB SCH (14:30)
[2021-12-11] MEDS ORDERED: Sodium Chloride 0.9% 10 ML ONE (16:39)
== END 2021-12-11 17:13 | disposition home or self-care (01) ==
LOC: ONC/OP 12:21
PROVIDERS: ATTEND Internal Medicine Hematology & Oncology
DX: E86.0 Dehydration (principal)
CPT/HCPCS: 36591; 80053; 85025; 96361; 96365; 96366; J1642; J3480; J7050

== ENCOUNTER 2021-12-14 09:50 | Day surgery (SDC) | payer BC ==
[2021-12-14 10:31] LABS: Anion Gap 13 mmol/L (10-20); BUN (Urea Nitrogen) 7 mg/dL (9.8-20.1); Calc. Creatinine Clearance 0 mL/min (70-130); Calcium 7.2 mg/dL (7.8-10.44); Carbon Dioxide 21 mmol/L (22-29); Chloride 105 mmol/L (98-107); Glucose 219 mg/dL (70-105); Sodium 137 mmol/L (136-145)
[2021-12-14 10:46] LABS: Potassium 2.4 mmol/L (3.5-5.1)
[2021-12-14] MEDS ORDERED: Potassium Chloride 20 MEQ TAB PO SCH (11:00)
[2021-12-14] MEDS ORDERED: Potassium Chloride 20 MEQ in Premix Bag 1 BAG IVPB SCH (11:15)
[2021-12-14] MEDS ORDERED: Sodium Chloride 0.9% 10 ML ONE (12:52)
[2021-12-14 13:14] VITALS: BP 134/80; TEMP 97.8
== END 2021-12-14 15:58 | disposition home or self-care (01) ==
LOC: ONC/OP 09:50
PROVIDERS: ATTEND Internal Medicine Hematology & Oncology
DX: C50.211 Malignant neoplasm of upper-inner quadrant of right female breast (principal); C79.51 Secondary malignant neoplasm of bone
CPT/HCPCS: 80048; 96365; J1642; J3480

== ENCOUNTER 2021-12-17 08:10 | Day surgery (SDC) | payer BC ==
[2021-12-17 09:42] LABS: BUN (Urea Nitrogen) 9 mg/dL (9.8-20.1); Calc. Creatinine Clearance 0 mL/min (70-130); Carbon Dioxide 18 mmol/L (22-29); Chloride 108 mmol/L (98-107); Potassium 2.9 mmol/L (3.5-5.1); Sodium 137 mmol/L (136-145)
[2021-12-17 09:43] LABS: Anion Gap 14 mmol/L (10-20); Calcium 7.1 mg/dL (7.8-10.44); Glucose 148 mg/dL (70-105)
== END 2021-12-17 11:17 | disposition home or self-care (01) ==
LOC: ONC/OP 08:10
PROVIDERS: ATTEND Internal Medicine Hematology & Oncology
DX: C50.211 Malignant neoplasm of upper-inner quadrant of right female breast (principal); C79.51 Secondary malignant neoplasm of bone
CPT/HCPCS: 36591; 80048; 82306; 82533; 84436; 84443

== ENCOUNTER 2021-12-25 08:25 | Outpatient (CLI) | payer BC | END 2021-12-25 08:26 | disposition home or self-care (01) | LOC: PET 08:25 | PROVIDERS: ATTEND Internal Medicine Hematology & Oncology | DX: C50.211 Malignant neoplasm of upper-inner quadrant of right female breast (principal); C79.51 Secondary malignant neoplasm of bone; R59.0 Localized enlarged lymph nodes | CPT/HCPCS: 78815; A9552 ==

== ENCOUNTER → 2021-12-25 | Day surgery (SDC) | payer BC ==
[2021-12-25 14:38] LABS: Chloride 105 mmol/L (98-107); Potassium 4.6 mmol/L (3.5-5.1); Sodium 132 mmol/L (136-145)
[2021-12-25 14:39] LABS: Glucose 155 mg/dL (70-105)
[2021-12-25 14:41] LABS: Anion Gap 13 mmol/L (10-20); Carbon Dioxide 19 mmol/L (22-29)
[2021-12-25 14:42] LABS: Calc. Creatinine Clearance 0 mL/min (70-130)
[2021-12-25 14:43] LABS: BUN (Urea Nitrogen) 13 mg/dL (9.8-20.1)
[2021-12-25 14:44] LABS: Magnesium 1.3 mg/dL (1.6-2.6)
[2021-12-25 14:50] LABS: Phosphorus 1.9 mg/dL (2.3-4.7)
== END ==
LOC: ONC/OP 07:50
PROVIDERS: ATTEND Internal Medicine Hematology & Oncology
DX: C50.211 Malignant neoplasm of upper-inner quadrant of right female breast (principal); C79.51 Secondary malignant neoplasm of bone; R59.0 Localized enlarged lymph nodes
CPT/HCPCS: 36591; 78815; 80048; 83735; 84100; A9552; J1642

== ENCOUNTER 2022-02-04 08:05 | Day surgery (SDC) | payer BC ==
[~2022-02-04 08:05] MED LIST changes: -FLU VACC QS2021-22(6MOS UP)/PF 60 MCG/0.5 ML SYRINGE IM ONE; -Sodium Chloride 0.9% 10 ML ONE
[2022-02-04 08:32] VITALS: BP 126/59; TEMP 98.1
== END 2022-02-04 08:36 | disposition home or self-care (01) ==
LOC: ONC/OP 08:05
PROVIDERS: ATTEND Internal Medicine Hematology & Oncology
DX: C50.211 Malignant neoplasm of upper-inner quadrant of right female breast (principal); C79.51 Secondary malignant neoplasm of bone
CPT/HCPCS: 96374; J1642; J3489; J3490

== ENCOUNTER → 2022-02-17 | Day surgery (SDC) | payer BC ==
[2022-02-17 10:15] LABS: #Lymphocytes 1.4 thou/uL (1.20-3.40); #Monocytes 0.2 thou/uL (0.11-0.59); #Neutrophils 1.5 thou/uL (1.40-6.50); %Eosinophils 1.3 % (0.0-10.0); %Lymphocytes 43.4 % (21.0-51.0); %Neutrophils 48.4 % (42.0-75.0); Mean Corpuscular HGB CONC 31.9 g/dL (32.0-36.0); Mean Corpuscular Hemoglobin 29.1 pg (27.0-31.0); Mean Platelet Volume 7.3 fL (7.4-10.4); Platelet Count 116 thou/uL (130-400); RBC Distribution Width 16.3 % (11.5-14.5); White Blood Cell (WBC) Count 3.1 thou/uL (4.8-10.8)
[2022-02-17 10:28] LABS: ALT (SGPT) 14 U/L (8-55); AST (SGOT) 37 U/L (5-34); Albumin 3.6 g/dL (3.5-5.0); Alkaline Phosphatase 125 U/L (40-110); Anion Gap 12 mmol/L (10-20); BUN (Urea Nitrogen) 10 mg/dL (9.8-20.1); Bilirubin, Total 0.2 mg/dL (0.2-1.2); Calc. Creatinine Clearance 0 mL/min (70-130); Calcium 8.2 mg/dL (7.8-10.44); Carbon Dioxide 21 mmol/L (22-29); Chloride 112 mmol/L (98-107); Globulin 3.1 g/dL (2.4-3.5); Glucose 195 mg/dL (70-105); Potassium 3.2 mmol/L (3.5-5.1); Protein, Total 6.7 g/dL (6.0-8.3); Sodium 142 mmol/L (136-145); Uric Acid 6.2 mg/dL (2.6-6.0)
== END | disposition home or self-care (01) ==
LOC: ONC/OP 08:50
PROVIDERS: ATTEND Internal Medicine Hematology & Oncology
DX: C79.51 Secondary malignant neoplasm of bone (principal); R91.8 Other nonspecific abnormal finding of lung field; C50.211 Malignant neoplasm of upper-inner quadrant of right female breast
CPT/HCPCS: 71046; 80053; 83615; 84550; 85025; 99212; G0463

== ENCOUNTER → 2022-03-23 | Day surgery (SDC) | payer BC ==
[2022-03-23 15:23] LABS: #Lymphocytes 1.3 thou/uL (1.20-3.40); #Monocytes 0.3 thou/uL (0.11-0.59); #Neutrophils 2.6 thou/uL (1.40-6.50); %Basophils 0.7 % (0.0-1.0); %Lymphocytes 30.4 % (21.0-51.0); %Monocytes 7.3 % (0.0-10.0); %Neutrophils 60.7 % (42.0-75.0); Hemoglobin 10.3 g/dL (12.0-16.0); Mean Corpuscular HGB CONC 31.6 g/dL (32.0-36.0); Mean Corpuscular Hemoglobin 29.4 pg (27.0-31.0); Mean Platelet Volume 8.1 fL (7.4-10.4); Platelet Count 90 thou/uL (130-400); RBC Distribution Width 13.1 % (11.5-14.5); Red Blood Cell (RBC) Count 3.52 mill/uL (4.20-5.40); White Blood Cell (WBC) Count 4.3 thou/uL (4.8-10.8)
[2022-03-23 15:42] LABS: ALT (SGPT) 24 U/L (8-55); AST (SGOT) 47 U/L (5-34); Alkaline Phosphatase 129 U/L (40-110); Anion Gap 14 mmol/L (10-20); BUN (Urea Nitrogen) 21 mg/dL (9.8-20.1); Bilirubin, Total 0.3 mg/dL (0.2-1.2); Calc. Creatinine Clearance 0 mL/min (70-130); Calcium 8.5 mg/dL (7.8-10.44); Carbon Dioxide 19 mmol/L (22-29); Chloride 116 mmol/L (98-107); Globulin 3.3 g/dL (2.4-3.5); Glucose 122 mg/dL (70-105); Potassium 6.2 mmol/L (3.5-5.1); Protein, Total 7.3 g/dL (6.0-8.3); Sodium 143 mmol/L (136-145); Uric Acid 7.6 mg/dL (2.6-6.0)
== END | disposition home or self-care (01) ==
LOC: ONC/OP 14:29
PROVIDERS: ATTEND Internal Medicine Hematology & Oncology
DX: C50.211 Malignant neoplasm of upper-inner quadrant of right female breast (principal); C79.51 Secondary malignant neoplasm of bone
CPT/HCPCS: 80053; 84550; 85025

== ENCOUNTER 2022-03-30 09:53 | Day surgery (SDC) | payer BC ==
[2022-03-30 12:38] LABS: Anion Gap 13 mmol/L (10-20); BUN (Urea Nitrogen) 37 mg/dL (9.8-20.1); Calc. Creatinine Clearance 0 mL/min (70-130); Calcium 8.4 mg/dL (7.8-10.44); Carbon Dioxide 19 mmol/L (22-29); Chloride 109 mmol/L (98-107); Glucose 168 mg/dL (70-105); Potassium 4.7 mmol/L (3.5-5.1); Sodium 136 mmol/L (136-145)
== END 2022-03-30 13:22 | disposition home or self-care (01) ==
LOC: ONC/OP 09:53
PROVIDERS: ATTEND Internal Medicine Hematology & Oncology
DX: C50.211 Malignant neoplasm of upper-inner quadrant of right female breast (principal); C79.51 Secondary malignant neoplasm of bone
CPT/HCPCS: 80048

== ENCOUNTER → 2022-03-30 | Day surgery (SDC) | payer BC ==
[~2022-03-30] MED LIST changes: +Sodium Chloride 0.9% 1,000 ML IV SCH; -Zoledronic Acid 4 MG in Sodium Chloride 0.9% 100 ML IVPB SCH
== END | disposition home or self-care (01) ==
LOC: ONC/OP 14:44
PROVIDERS: ATTEND Internal Medicine Hematology & Oncology
DX: C50.211 Malignant neoplasm of upper-inner quadrant of right female breast (principal); C79.51 Secondary malignant neoplasm of bone
CPT/HCPCS: 80048; 96360; J1642

== ENCOUNTER 2022-04-01 08:26 | Day surgery (SDC) | payer BC ==
[2022-04-01 11:34] LABS: Anion Gap 12 mmol/L (10-20); BUN (Urea Nitrogen) 30 mg/dL (9.8-20.1); Calc. Creatinine Clearance 0 mL/min (70-130); Calcium 8.5 mg/dL (7.8-10.44); Carbon Dioxide 20 mmol/L (22-29); Chloride 113 mmol/L (98-107); Glucose 133 mg/dL (70-105); Potassium 4.3 mmol/L (3.5-5.1); Sodium 141 mmol/L (136-145)
== END 2022-04-01 14:09 | disposition home or self-care (01) ==
LOC: ONC/OP 08:26
PROVIDERS: ATTEND Internal Medicine Hematology & Oncology
DX: C50.211 Malignant neoplasm of upper-inner quadrant of right female breast (principal); C79.51 Secondary malignant neoplasm of bone
CPT/HCPCS: 80048

== ENCOUNTER 2022-04-07 14:06 | Outpatient (CLI) | payer BC | END 2022-04-07 14:07 | disposition home or self-care (01) | LOC: BICMRI 14:06 | PROVIDERS: ATTEND Family Medicine | DX: M54.16 Radiculopathy, lumbar region (principal); M89.9 Disorder of bone, unspecified | CPT/HCPCS: 72148 ==

== ENCOUNTER 2022-04-09 13:09 | Day surgery (SDC) | payer BC ==
[2022-04-09 14:38] LABS: Anion Gap 16 mmol/L (10-20); BUN (Urea Nitrogen) 41 mg/dL (9.8-20.1); Calc. Creatinine Clearance 0 mL/min (70-130); Calcium 8.6 mg/dL (7.8-10.44); Carbon Dioxide 19 mmol/L (22-29); Chloride 108 mmol/L (98-107); Glucose 151 mg/dL (70-105); Potassium 4.5 mmol/L (3.5-5.1); Sodium 138 mmol/L (136-145)
== END 2022-04-09 16:00 | disposition home or self-care (01) ==
LOC: ONC/OP 13:09
PROVIDERS: ATTEND Internal Medicine Hematology & Oncology
DX: C50.211 Malignant neoplasm of upper-inner quadrant of right female breast (principal); C79.51 Secondary malignant neoplasm of bone
CPT/HCPCS: 80048

== ENCOUNTER 2022-04-12 14:23 | Day surgery (SDC) | payer BC ==
[2022-04-12] MEDS ORDERED: Sodium Chloride 0.9% 1,000 ML IV SCH (16:45)
== END 2022-04-12 16:44 | disposition home or self-care (01) ==
LOC: ONC/OP 14:23
PROVIDERS: ATTEND Nurse Practitioner Family
DX: C50.211 Malignant neoplasm of upper-inner quadrant of right female breast (principal); C79.51 Secondary malignant neoplasm of bone
CPT/HCPCS: 96365; J1642

== ENCOUNTER 2022-04-14 10:08 | Day surgery (SDC) | payer BC ==
[2022-04-14 11:23] LABS: Anion Gap 13 mmol/L (10-20); BUN (Urea Nitrogen) 21 mg/dL (9.8-20.1); Calc. Creatinine Clearance 0 mL/min (70-130); Calcium 8.1 mg/dL (7.8-10.44); Carbon Dioxide 21 mmol/L (22-29); Chloride 113 mmol/L (98-107); Glucose 196 mg/dL (70-105); Potassium 4.7 mmol/L (3.5-5.1); Sodium 142 mmol/L (136-145)
== END 2022-04-14 16:06 | disposition home or self-care (01) ==
LOC: ONC/OP 10:08
PROVIDERS: ATTEND Nurse Practitioner Family
DX: C50.211 Malignant neoplasm of upper-inner quadrant of right female breast (principal); C79.51 Secondary malignant neoplasm of bone
CPT/HCPCS: 80048

== ENCOUNTER 2022-04-15 12:15 | Day surgery (SDC) | payer BC ==
[2022-04-15] MEDS ORDERED: Sodium Chloride 0.9% 1,000 ML IV SCH (15:00)
[2022-04-15 15:04] VITALS: BP 164/77; TEMP 97.9
[2022-04-15 16:38] LABS: ALT (SGPT) 26 U/L (8-55); AST (SGOT) 36 U/L (5-34); Albumin 3.5 g/dL (3.5-5.0); Alkaline Phosphatase 155 U/L (40-110); Anion Gap 14 mmol/L (10-20); BUN (Urea Nitrogen) 20 mg/dL (9.8-20.1); Bilirubin, Total 0.4 mg/dL (0.2-1.2); Calc. Creatinine Clearance 0 mL/min (70-130); Carbon Dioxide 18 mmol/L (22-29); Chloride 112 mmol/L (98-107); Globulin 2.7 g/dL (2.4-3.5); Glucose 125 mg/dL (70-105); Potassium 4.7 mmol/L (3.5-5.1); Protein, Total 6.2 g/dL (6.0-8.3); Sodium 139 mmol/L (136-145)
== END 2022-04-15 16:25 | disposition home or self-care (01) ==
LOC: ONC/OP 12:15
PROVIDERS: ATTEND Nurse Practitioner Family
DX: C50.211 Malignant neoplasm of upper-inner quadrant of right female breast (principal); C79.51 Secondary malignant neoplasm of bone
CPT/HCPCS: 36591; 80053; 96360; J1642

== ENCOUNTER 2022-04-20 14:18 | Outpatient (CLI) | payer BC | END 2022-04-20 14:19 | disposition home or self-care (01) | LOC: RAD 14:18 | DX: K59.00 Constipation, unspecified (principal) | CPT/HCPCS: 74019 ==

== ENCOUNTER 2022-04-23 08:00 | Outpatient (CLI) | payer BC | END 2022-04-23 08:01 | disposition home or self-care (01) | LOC: PET 08:00 | PROVIDERS: ATTEND Internal Medicine Hematology & Oncology | DX: C79.51 Secondary malignant neoplasm of bone (principal); C50.211 Malignant neoplasm of upper-inner quadrant of right female breast; J90 Pleural effusion, not elsewhere classified; R18.8 Other ascites | CPT/HCPCS: 78815; A9552 ==

== ENCOUNTER 2022-04-23 13:50 | Outpatient (CLI) | payer BC | END 2022-04-23 13:51 | disposition home or self-care (01) | LOC: ULT 13:50 | PROVIDERS: ATTEND Internal Medicine Hematology & Oncology | DX: C50.919 Malignant neoplasm of unspecified site of unspecified female breast (principal); R79.89 Other specified abnormal findings of blood chemistry; J90 Pleural effusion, not elsewhere classified; K80.20 Calculus of gallbladder without cholecystitis without obstruction | CPT/HCPCS: 76770 ==

== ENCOUNTER 2022-04-27 08:38 | Day surgery (SDC) | payer BC ==
[2022-04-27 09:20] LABS: Anion Gap 14 mmol/L (10-20); BUN (Urea Nitrogen) 31 mg/dL (9.8-20.1); Calc. Creatinine Clearance 0 mL/min (70-130); Calcium 8.5 mg/dL (7.8-10.44); Carbon Dioxide 15 mmol/L (22-29); Chloride 111 mmol/L (98-107); Estimated GFR 24; Glucose 198 mg/dL (70-105); Potassium 4.2 mmol/L (3.5-5.1); Sodium 136 mmol/L (136-145)
[2022-04-27] MEDS ORDERED: Sodium Chloride 0.9% 1,000 ML IV SCH (15:00)
== END 2022-04-27 15:20 | disposition home or self-care (01) ==
LOC: ONC/OP 08:38
PROVIDERS: ATTEND Internal Medicine Hematology & Oncology
DX: C50.211 Malignant neoplasm of upper-inner quadrant of right female breast (principal); C79.51 Secondary malignant neoplasm of bone
CPT/HCPCS: 80048; 96360; J1642

== ENCOUNTER 2022-04-29 08:21 | Outpatient (CLI) | payer BC | END 2022-04-29 08:22 | disposition home or self-care (01) | LOC: LABBT 08:21 | PROVIDERS: ATTEND Internal Medicine Critical Care Medicine | DX: Z01.812 Encounter for preprocedural laboratory examination (principal); J90 Pleural effusion, not elsewhere classified; Z20.822 Contact with and (suspected) exposure to COVID-19 | CPT/HCPCS: 87811 ==

== ENCOUNTER 2022-04-30 11:34 | Day surgery (SDC) | payer BC ==
[2022-04-29 14:14] VITALS: BMI 28.4
[2022-04-30] MEDS ORDERED: Lidocaine 1% PF 5 ML VIAL ONE (12:06)
[2022-04-30 13:54] LABS: Pleural Fluid, Protein 3.9 g/dL
[2022-04-30 14:04] LABS: RBC Count-Automated (BF) 9367 /cu.mm; WBC/Nucleated-Auto (BF) 803 /cu.mm
[2022-04-30 14:26] LABS: BF Color Pink; Body Fluid Source Pleural Fluid; Clarity Hazy (Clear); Tube # EDTA
[2022-04-30 14:49] LABS: BF Segmented Neutrophils 9 %; Cell Count Non Hematic 76 %; Lymphocytes 15 %
== END 2022-04-30 12:50 | disposition home or self-care (01) ==
LOC: SDC 11:34
PROVIDERS: ATTEND Internal Medicine Critical Care Medicine
PROC: 0W993ZZ Drainage of Right Pleural Cavity, Percutaneous Approach (ICD-10-PCS; principal; 2022-04-30)
DX: C50.919 Malignant neoplasm of unspecified site of unspecified female breast (principal); J91.0 Malignant pleural effusion; Z79.891 Long term (current) use of opiate analgesic; Z79.899 Other long term (current) drug therapy; Z88.1 Allergy status to other antibiotic agents
CPT/HCPCS: 32555; 82150; 82945; 83615; 83986; 84157; 84478; 85060; 87070; 87116; 87205; 87206; 88112; 88305; 88313; 88341; 88342; 89051

== ENCOUNTER 2022-05-04 10:24 | Outpatient (CLI) | payer BC | END 2022-05-04 10:25 | disposition home or self-care (01) | LOC: RAD 10:24 | PROVIDERS: ATTEND Internal Medicine Hematology & Oncology | DX: C50.211 Malignant neoplasm of upper-inner quadrant of right female breast (principal); C79.51 Secondary malignant neoplasm of bone; J90 Pleural effusion, not elsewhere classified | CPT/HCPCS: 71046 ==

== ENCOUNTER 2022-05-05 15:12 | Outpatient (CLI) | payer BC | END 2022-05-05 15:13 | disposition home or self-care (01) | LOC: LABBT 15:12 | PROVIDERS: ATTEND Internal Medicine Pulmonary Disease | DX: Z20.822 Contact with and (suspected) exposure to COVID-19 (principal) | CPT/HCPCS: 87811 ==

== ENCOUNTER 2022-05-07 12:13 | Day surgery (SDC) | payer BC ==
[2022-05-05 15:51] VITALS: BMI 28.4
== END 2022-05-07 14:02 | disposition home or self-care (01) ==
LOC: SDC 12:13
PROVIDERS: ATTEND Internal Medicine Pulmonary Disease
PROC: 0W993ZZ Drainage of Right Pleural Cavity, Percutaneous Approach (ICD-10-PCS; principal; 2022-05-07)
PROC: BB4BZZZ Ultrasonography of Pleura (ICD-10-PCS; principal; 2022-05-07)
DX: C50.911 Malignant neoplasm of unspecified site of right female breast (principal); C79.9 Secondary malignant neoplasm of unspecified site; J91.0 Malignant pleural effusion; I10 Essential (primary) hypertension; Z79.899 Other long term (current) drug therapy; Z88.1 Allergy status to other antibiotic agents; Z87.891 Personal history of nicotine dependence
CPT/HCPCS: 32554; 71045; J1642

== ENCOUNTER 2022-05-18 11:21 | Observation (INO) | payer BC ==
[2022-05-18 12:21] LABS: #Lymphocytes 1.6 thou/uL (1.20-3.40); #Neutrophils 9.6 thou/uL (1.40-6.50); %Basophils 0.3 % (0.0-1.0); %Eosinophils 0.3 % (0.0-10.0); %Monocytes 8.1 % (0.0-10.0); %Neutrophils 78.3 % (42.0-75.0); Hemoglobin 9.8 g/dL (12.0-16.0); Mean Corpuscular HGB CONC 31.8 g/dL (32.0-36.0); Mean Corpuscular Hemoglobin 27.7 pg (27.0-31.0); Mean Corpuscular Volume 87.2 fL (78.0-98.0); Mean Platelet Volume 8.5 fL (7.4-10.4); Platelet Count 214 thou/uL (130-400); Red Blood Cell (RBC) Count 3.54 mill/uL (4.20-5.40); White Blood Cell (WBC) Count 12.2 thou/uL (4.8-10.8)
[2022-05-18 12:29] LABS: INR-International Normal Ratio 1.2; PTT 30.8 sec (22.9-36.1); Prothrombin Time 14.9 sec (12.0-14.7)
[2022-05-18 12:43] LABS: ALT (SGPT) 31 U/L (8-55); AST (SGOT) 38 U/L (5-34); Albumin 3.2 g/dL (3.5-5.0); Alkaline Phosphatase 103 U/L (40-110); Anion Gap 17 mmol/L (10-20); BUN (Urea Nitrogen) 32 mg/dL (9.8-20.1); Bilirubin, Total 0.5 mg/dL (0.2-1.2); Calc. Creatinine Clearance 0 mL/min (70-130); Calcium 8.2 mg/dL (7.8-10.44); Carbon Dioxide 16 mmol/L (22-29); Chloride 111 mmol/L (98-107); Estimated GFR 23; Globulin 2.7 g/dL (2.4-3.5); Glucose 163 mg/dL (70-105); Potassium 4.5 mmol/L (3.5-5.1); Protein, Total 5.9 g/dL (6.0-8.3); Sodium 139 mmol/L (136-145)
[2022-05-18] MEDS ORDERED: Sodium Chloride 0.9% 1,000 ML IV SCH (15:30)
[2022-05-18] MEDS ORDERED: Acetaminophen 325 MG TAB PO PRN (15:30)
[2022-05-18] MEDS ORDERED: Ondansetron ODT 4 MG TAB SL PRN (15:30)
[2022-05-18] MEDS ORDERED: Ondansetron PF 4 MG/2 ML Vial IVP PRN (15:30)
[2022-05-18 16:05] VITALS: BMI 26.3
[2022-05-18] MEDS: Sodium Chloride 0.9% 1,000 ML IV SCH ×2 (17:32→19:09)
[2022-05-18] MEDS ORDERED: Senokot S 8.6-50 MG TAB PO PRN (20:28)
[2022-05-18] MEDS ORDERED: Melatonin 3 MG TAB PO PRN (20:34)
[2022-05-18] MEDS ORDERED: Nebivolol HCl 5 MG TAB PO SCH (21:00)
[2022-05-18] MEDS ORDERED: Pantoprazole 40 MG VIAL IVP SCH (21:00)
[2022-05-18] MEDS: pyridOXINE 50 MG (B6) TAB PO SCH (21:23)
[2022-05-18] MEDS: cloNIDine 0.1 MG TAB PO SCH (21:23)
[2022-05-18] MEDS ORDERED: HYDROcodone/Acetaminophen 10/325 mg Tablet PO PRN (22:24)
[2022-05-18] MEDS ORDERED: HYDROcodone/Acetaminophen 5/325 mg Tablet PO PRN (22:24)
[2022-05-19 06:42] LABS: #Lymphocytes 1.4 thou/uL (1.20-3.40); #Monocytes 0.7 thou/uL (0.11-0.59); #Neutrophils 8.9 thou/uL (1.40-6.50); %Basophils 0.3 % (0.0-1.0); %Eosinophils 0.2 % (0.0-10.0); %Lymphocytes 12.4 % (21.0-51.0); %Monocytes 6.6 % (0.0-10.0); %Neutrophils 80.5 % (42.0-75.0); Hemoglobin 9.2 g/dL (12.0-16.0); Mean Corpuscular HGB CONC 32.4 g/dL (32.0-36.0); Mean Corpuscular Hemoglobin 28.5 pg (27.0-31.0); Mean Corpuscular Volume 87.8 fL (78.0-98.0); Mean Platelet Volume 8.3 fL (7.4-10.4); Platelet Count 196 thou/uL (130-400); RBC Distribution Width 11.8 % (11.5-14.5); Red Blood Cell (RBC) Count 3.25 mill/uL (4.20-5.40); White Blood Cell (WBC) Count 11.1 thou/uL (4.8-10.8)
[2022-05-19 07:02] LABS: ALT (SGPT) 28 U/L (8-55); AST (SGOT) 30 U/L (5-34); Albumin 3.1 g/dL (3.5-5.0); Alkaline Phosphatase 95 U/L (40-110); Anion Gap 18 mmol/L (10-20); BUN (Urea Nitrogen) 33 mg/dL (9.8-20.1); Bilirubin, Total 0.4 mg/dL (0.2-1.2); Calc. Creatinine Clearance 35 mL/min (70-130); Carbon Dioxide 16 mmol/L (22-29); Chloride 111 mmol/L (98-107); Estimated GFR 25; Globulin 2.7 g/dL (2.4-3.5); Glucose 183 mg/dL (70-105); Potassium 4.5 mmol/L (3.5-5.1); Protein, Total 5.8 g/dL (6.0-8.3); Sodium 140 mmol/L (136-145)
[2022-05-19] MEDS: pyridOXINE 50 MG (B6) TAB PO SCH (08:42)
[2022-05-19] MEDS: cloNIDine 0.1 MG TAB PO SCH (08:43)
[2022-05-19] MEDS ORDERED: Folic Acid 1 MG TAB PO SCH (09:00)
[2022-05-19] MEDS ORDERED: Pantoprazole 40 MG VIAL IVP SCH (09:00)
[2022-05-19] MEDS ORDERED: EPINEPHrine 1 MG/ML AMP ONE (10:37)
[2022-05-19] MEDS ORDERED: Midazolam HCl 2 mg/2 ml Vial ONE (11:29)
[2022-05-19] MEDS ORDERED: Phenylephrine 10 MG/ML VIAL ONE (11:34)
[2022-05-19] MEDS ORDERED: Ondansetron PF 4 MG/2 ML Vial ONE (11:34)
[2022-05-19] MEDS ORDERED: PROPOFOL 200 MG/20 ML VIAL ONE (11:34)
[2022-05-19] MEDS ORDERED: Sodium Chloride 0.9% 100 ML ONE (11:36)
[2022-05-19] MEDS ORDERED: CEFAZOLIN 2 GM VIAL ONE (11:36)
[2022-05-19 16:33] VITALS: BP 107/69; TEMP 97.6
== END 2022-05-19 17:54 | disposition home or self-care (01) ==
LOC: ERS 11:21 → INTOOBSV 13:34 → T4-B 13:34
PROVIDERS: ADMIT Thoracic Surgery (Cardiothoracic Vascular Surgery); ATTEND Thoracic Surgery (Cardiothoracic Vascular Surgery)
PROC: 0W9B30Z Drainage of Left Pleural Cavity with Drainage Device, Percutaneous Approach (ICD-10-PCS; principal; 2022-05-19)
PROC: 0W9930Z Drainage of Right Pleural Cavity with Drainage Device, Percutaneous Approach (ICD-10-PCS; 2022-05-19)
DX: C50.911 Malignant neoplasm of unspecified site of right female breast (principal); C50.912 Malignant neoplasm of unspecified site of left female breast; J91.0 Malignant pleural effusion; N17.9 Acute kidney failure, unspecified; I10 Essential (primary) hypertension; K21.9 Gastro-esophageal reflux disease without esophagitis; Z66 Do not resuscitate; Z87.891 Personal history of nicotine dependence; Z79.810 Long term (current) use of selective estrogen receptor modulators (SERMs); Z79.899 Other long term (current) drug therapy; Z88.1 Allergy status to other antibiotic agents; Z20.822 Contact with and (suspected) exposure to COVID-19
CPT/HCPCS: 71045; 71250; 80053; 85025; 85610; 85730; 93005; 94760; 96374; 96375; 96376; C1729; C9113; G0378; J0171; J0690; J1642; J2250; J2370; J2405; J2704; J3490; J7050; U0003; U0005

== ENCOUNTER 2022-05-24 06:22 | Inpatient (IN) | payer BC ==
[2022-05-24] MEDS ORDERED: Ondansetron PF 4 MG/2 ML Vial ONE (07:49)
[2022-05-24 08:07] LABS: #Lymphocytes 1.1 thou/uL (1.20-3.40); #Monocytes 0.8 thou/uL (0.11-0.59); #Neutrophils 11.4 thou/uL (1.40-6.50); %Basophils 0.1 % (0.0-1.0); %Eosinophils 0.2 % (0.0-10.0); %Lymphocytes 8.2 % (21.0-51.0); %Monocytes 5.7 % (0.0-10.0); %Neutrophils 85.8 % (42.0-75.0); Hemoglobin 8.8 g/dL (12.0-16.0); Mean Corpuscular HGB CONC 32.5 g/dL (32.0-36.0); Mean Corpuscular Hemoglobin 27.9 pg (27.0-31.0); Mean Platelet Volume 7.6 fL (7.4-10.4); Platelet Count 287 thou/uL (130-400); RBC Distribution Width 12.3 % (11.5-14.5); Red Blood Cell (RBC) Count 3.13 mill/uL (4.20-5.40); White Blood Cell (WBC) Count 13.3 thou/uL (4.8-10.8)
[2022-05-24 08:27] LABS: ALT (SGPT) 10 U/L (8-55); AST (SGOT) 19 U/L (5-34); Alkaline Phosphatase 91 U/L (40-110); Anion Gap 19 mmol/L (10-20); BUN (Urea Nitrogen) 28 mg/dL (9.8-20.1); Bilirubin, Total 0.6 mg/dL (0.2-1.2); CK (CPK) 10 U/L (29-168); Calc. Creatinine Clearance 0 mL/min (70-130); Calcium 8.5 mg/dL (7.8-10.44); Carbon Dioxide 19 mmol/L (22-29); Chloride 103 mmol/L (98-107); Estimated GFR 23; Globulin 2.9 g/dL (2.4-3.5); Glucose 180 mg/dL (70-105); Lipase 58 U/L (8-78); Potassium 3.9 mmol/L (3.5-5.1); Protein, Total 5.9 g/dL (6.0-8.3); Sodium 137 mmol/L (136-145)
[2022-05-24] MEDS ORDERED: Promethazine HCl 25 MG in Sodium Chloride 0.9% 50 ML IVPB SCH (10:00)
[2022-05-24 12:23] LABS: SARS-CoV-2 NAA Rapid Test Not Detected (NotDetected)
[2022-05-24 12:56] VITALS: BMI 25.7
[2022-05-24] MEDS ORDERED: Ondansetron ODT 4 MG TAB PO PRN (14:12)
[2022-05-24] MEDS ORDERED: Acetaminophen 325 MG TAB PO PRN (14:12)
[2022-05-24] MEDS ORDERED: hydrALAZINE 20 MG/ML VIAL SLOW IVP PRN (14:12)
[2022-05-24] MEDS ORDERED: Acetaminophen 650 MG Suppository PR PRN (14:12)
[2022-05-24] MEDS ORDERED: Morphine 2 MG/ML VIAL SLOW IVP PRN (14:13)
[2022-05-24] MEDS ORDERED: Electrolyte Replacement Protocol 1 EACH FS SCH (14:15)
[2022-05-24] MEDS: Pantoprazole 40 MG VIAL IVP SCH (14:48)
[2022-05-24] MEDS: Dextrose 5 %-0.45 % NaCl 1,000 ML IV SCH (14:51)
[2022-05-24] MEDS: Ondansetron PF 4 MG/2 ML Vial IVP PRN (14:51)
[2022-05-24] MEDS: Dicyclomine 20 MG/2 ML VIAL IM PRN ×2 (16:33→22:33)
[2022-05-24] MEDS: diphenhydrAMINE 50 MG/ML VIAL IVP PRN (20:23)
[2022-05-24] MEDS: Promethazine HCl 25 MG in Sodium Chloride 0.9% 50 ML IVPB PRN (20:23)
[2022-05-25] MEDS: Ondansetron PF 4 MG/2 ML Vial IVP PRN ×3 (01:14→17:46)
[2022-05-25] MEDS: Dextrose 5 %-0.45 % NaCl 1,000 ML IV SCH ×2 (01:14→11:41)
[2022-05-25] MEDS: diphenhydrAMINE 50 MG/ML VIAL IVP PRN ×3 (02:39→20:59)
[2022-05-25] MEDS: Promethazine HCl 25 MG in Sodium Chloride 0.9% 50 ML IVPB PRN ×2 (03:13→14:13)
[2022-05-25] MEDS: Dicyclomine 20 MG/2 ML VIAL IM PRN (04:33)
[2022-05-25] MEDS: Morphine 4 MG/ML VIAL SLOW IVP PRN ×4 (05:06→22:07)
[2022-05-25 05:13] LABS: #Lymphocytes 1.6 thou/uL (1.20-3.40); #Monocytes 1.2 thou/uL (0.11-0.59); %Basophils 0.1 % (0.0-1.0); %Eosinophils 0.1 % (0.0-10.0); %Lymphocytes 10.1 % (21.0-51.0); %Monocytes 7.4 % (0.0-10.0); %Neutrophils 82.2 % (42.0-75.0); Hemoglobin 7.9 g/dL (12.0-16.0); Mean Corpuscular Volume 85.4 fL (78.0-98.0); Mean Platelet Volume 8.1 fL (7.4-10.4); Platelet Count 300 thou/uL (130-400); RBC Distribution Width 12.6 % (11.5-14.5); Red Blood Cell (RBC) Count 2.73 mill/uL (4.20-5.40); White Blood Cell (WBC) Count 15.8 thou/uL (4.8-10.8)
[2022-05-25 05:32] LABS: ALT (SGPT) 13 U/L (8-55); AST (SGOT) 32 U/L (5-34); Albumin 2.7 g/dL (3.5-5.0); Alkaline Phosphatase 73 U/L (40-110); Anion Gap 16 mmol/L (10-20); BUN (Urea Nitrogen) 25 mg/dL (9.8-20.1); Bilirubin, Total 0.4 mg/dL (0.2-1.2); Calc. Creatinine Clearance 33 mL/min (70-130); Calcium 7.6 mg/dL (7.8-10.44); Carbon Dioxide 21 mmol/L (22-29); Chloride 106 mmol/L (98-107); Estimated GFR 24; Globulin 2.9 g/dL (2.4-3.5); Glucose 223 mg/dL (70-105); Magnesium 1.5 mg/dL (1.6-2.6); Potassium 3.6 mmol/L (3.5-5.1); Protein, Total 5.6 g/dL (6.0-8.3); Sodium 139 mmol/L (136-145)
[2022-05-25] MEDS: Pantoprazole 40 MG VIAL IVP SCH (09:29)
[2022-05-25] MEDS ORDERED: HYDROmorphone 0.5 MG/0.5 ML SYRINGE SLOW IVP PRN (10:58)
[2022-05-25] MEDS: Dicyclomine 20 MG/2 ML VIAL IM SCH ×3 (13:05→20:59)
[2022-05-25] MEDS ORDERED: Magnesium 2 GM/50 ML(in water) 2 GM in Premix Bag 1 BAG IVPB SCH (15:15)
[2022-05-25] MEDS ORDERED: Metoclopramide HCl 10 MG/2 ML VIAL IVP SCH (15:30)
[2022-05-25] MEDS: Lactated Ringer's 1,000 ML IV SCH (15:36)
[2022-05-25] MEDS: Metoclopramide HCl 10 MG/2 ML VIAL IVP SCH (20:59)
[2022-05-26] MEDS: Ondansetron PF 4 MG/2 ML Vial IVP PRN ×2 (00:27→07:41)
[2022-05-26] MEDS: Lactated Ringer's 1,000 ML IV SCH ×2 (01:14→13:33)
[2022-05-26] MEDS: Morphine 4 MG/ML VIAL SLOW IVP PRN ×3 (02:15→12:08)
[2022-05-26] MEDS: diphenhydrAMINE 50 MG/ML VIAL IVP PRN (03:02)
[2022-05-26] MEDS: Metoclopramide HCl 10 MG/2 ML VIAL IVP SCH ×2 (05:06→14:40)
[2022-05-26 06:45] LABS: Reticulocyte Count 2.8 % (0.5-1.5)
[2022-05-26 06:46] LABS: #Lymphocytes 1.4 thou/uL (1.20-3.40); %Eosinophils 0.2 % (0.0-10.0); %Lymphocytes 7.4 % (21.0-51.0); %Monocytes 5.6 % (0.0-10.0); %Neutrophils 86.8 % (42.0-75.0); Hemoglobin 9.2 g/dL (12.0-16.0); Mean Corpuscular HGB CONC 32.3 g/dL (32.0-36.0); Mean Corpuscular Hemoglobin 28.6 pg (27.0-31.0); Mean Corpuscular Volume 88.4 fL (78.0-98.0); Mean Platelet Volume 7.4 fL (7.4-10.4); Platelet Count 275 thou/uL (130-400); RBC Distribution Width 13.1 % (11.5-14.5); Red Blood Cell (RBC) Count 3.23 mill/uL (4.20-5.40); White Blood Cell (WBC) Count 18.4 thou/uL (4.8-10.8)
[2022-05-26 06:59] LABS: ALT (SGPT) 10 U/L (8-55); AST (SGOT) 21 U/L (5-34); Albumin 2.7 g/dL (3.5-5.0); Alkaline Phosphatase 76 U/L (40-110); Anion Gap 12 mmol/L (10-20); BUN (Urea Nitrogen) 21 mg/dL (9.8-20.1); Bilirubin, Total 0.4 mg/dL (0.2-1.2); Calc. Creatinine Clearance 33 mL/min (70-130); Calcium 7.5 mg/dL (7.8-10.44); Carbon Dioxide 24 mmol/L (22-29); Chloride 108 mmol/L (98-107); Estimated GFR 24; Globulin 2.4 g/dL (2.4-3.5); Glucose 151 mg/dL (70-105); Iron 16 ug/dL (50-170); Iron Binding Capacity, Total 173 mcg/dL (265-497); Potassium 3.9 mmol/L (3.5-5.1); Protein, Total 5.1 g/dL (6.0-8.3); Sodium 140 mmol/L (136-145)
[2022-05-26 08:51] VITALS: BP 161/89
[2022-05-26] MEDS: Dicyclomine 20 MG/2 ML VIAL IM SCH ×3 (08:59→17:24)
[2022-05-26] MEDS: Pantoprazole 40 MG VIAL IVP SCH (08:59)
[2022-05-26] MEDS ORDERED: Fentanyl 100 MCG/2 ML VIAL ONE (10:00)
[2022-05-26] MEDS ORDERED: PROPOFOL 200 MG/20 ML VIAL ONE (10:08)
[2022-05-26] MEDS ORDERED: Lidocaine 1% PF 5 ML VIAL ONE (10:08)
[2022-05-26] MEDS ORDERED: Esmolol 100 MG/10 ML VIAL ONE (10:08)
[2022-05-26 11:14] LABS: #Eosinphils 0.1 thou/uL (0.0-0.7); #Lymphocytes 2.4 thou/uL (1.20-3.40); #Monocytes 0.7 thou/uL (0.11-0.59); #Neutrophils 10.9 thou/uL (1.40-6.50); %Eosinophils 0.5 % (0.0-10.0); %Lymphocytes 16.7 % (21.0-51.0); %Monocytes 5.2 % (0.0-10.0); %Neutrophils 77.6 % (42.0-75.0); Hemoglobin 7.4 g/dL (12.0-16.0); Mean Corpuscular HGB CONC 30.6 g/dL (32.0-36.0); Mean Corpuscular Hemoglobin 27.3 pg (27.0-31.0); Mean Corpuscular Volume 89.2 fL (78.0-98.0); Mean Platelet Volume 7.6 fL (7.4-10.4); Platelet Count 329 thou/uL (130-400); RBC Distribution Width 13.1 % (11.5-14.5); White Blood Cell (WBC) Count 14.1 thou/uL (4.8-10.8)
[2022-05-26 11:38] LABS: ALT (SGPT) 8 U/L (8-55); AST (SGOT) 20 U/L (5-34); Albumin 2.5 g/dL (3.5-5.0); Alkaline Phosphatase 75 U/L (40-110); Anion Gap 13 mmol/L (10-20); BUN (Urea Nitrogen) 21 mg/dL (9.8-20.1); Bilirubin, Total 0.5 mg/dL (0.2-1.2); Calc. Creatinine Clearance 32 mL/min (70-130); Calcium 7.4 mg/dL (7.8-10.44); Carbon Dioxide 22 mmol/L (22-29); Chloride 108 mmol/L (98-107); Estimated GFR 23; Globulin 2.2 g/dL (2.4-3.5); Glucose 189 mg/dL (70-105); Phosphorus 3.1 mg/dL (2.3-4.7); Potassium 3.7 mmol/L (3.5-5.1); Protein, Total 4.7 g/dL (6.0-8.3); Sodium 139 mmol/L (136-145)
[2022-05-26] MEDS ORDERED: Midazolam HCl 2 mg/2 ml Vial SLOW IVP PRN (12:00)
[2022-05-26] MEDS ORDERED: Lactated Ringer's 500 ML IV SCH (12:00)
[2022-05-26] MEDS ORDERED: Lactated Ringer's 1,000 ML IV SCH (12:00)
[2022-05-26] MEDS ORDERED: ZOSYN IVPB PRN (12:36)
[2022-05-26] MEDS ORDERED: Piperacillin/Tazobactam 3.375 GM in Sodium Chloride 0.9% 100 ML IVPB SCH ×2 (12:45→17:00)
[2022-05-26] MEDS ORDERED: Sodium Bicarb 50 MEQ/50 ML VIAL ONE ×2 (12:49→14:48)
[2022-05-26 12:56] LABS: Actual Bicarbonate (HCO3a) 20.7 mEq/L (22-28); Base Excess (BEa) -7.2 mEq/L (-2.0 to +3.0); CO2 Tension 54.6 mmHg (35.0-45.0); Calcium, Ionized (arterial) 1.12 mmol/L (1.12-1.30); Carboxyhemoglobin (COHb) 0.3 gm% (0.0-3.0); O2 Tension (PaO2), arterial 48.4 mmHg (80.0-100.0); Potassium - ABG Lab 3.77 mmol/L (3.70-5.30)
[2022-05-26 12:57] LABS: Puncture Site LBA
[2022-05-26] MEDS ORDERED: Sodium Bicarb 50 MEQ/50 ML VIAL IVP SCH ×2 (13:00→15:00)
[2022-05-26 14:25] LABS: Actual Bicarbonate (HCO3a) 20.5 mEq/L (22-28); Calcium, Ionized (arterial) 1.09 mmol/L (1.12-1.30); Carboxyhemoglobin (COHb) 0.3 gm% (0.0-3.0); O2 Tension (PaO2), arterial 67.4 mmHg (80.0-100.0); Potassium - ABG Lab 3.77 mmol/L (3.70-5.30); pH, Arterial 7.12 (7.35-7.45)
[2022-05-26 14:26] LABS: CO2 Tension 64.4 mmHg (35.0-45.0); Puncture Site LBA
[2022-05-26] MEDS ORDERED: Phenylephrine 40 MG/NS 250 ML 10 MG in Premix Bag 1 BAG IVPB SCH (14:30)
[2022-05-26] MEDS ORDERED: Phenylephrine 0.25% Nasal Spray 15 ML BOT ONE ×2 (14:33→14:38)
[2022-05-26] MEDS ORDERED: Furosemide 40 MG/4 ML VIAL SLOW IVP SCH (14:45)
[2022-05-26] MEDS ORDERED: Furosemide 20 MG/2 ML VIAL SLOW IVP SCH (14:45)
[2022-05-26] MEDS ORDERED: Phenylephrine 40 MG/NS 250 ML 40 MG in Premix Bag 1 BAG IVPB SCH (14:45)
[2022-05-26] MEDS ORDERED: Amiodarone 150 MG in Dextrose 5% in Water 100 ML IVPB SCH (15:15)
[2022-05-26] MEDS ORDERED: Amiodarone 450 MG in Dextrose 5% in Water 250 ML IVPB SCH (15:15)
[2022-05-26 16:01] LABS: Base Excess (BEa) -4.7 mEq/L (-2.0 to +3.0); CO2 Tension 64.6 mmHg (35.0-45.0); Carboxyhemoglobin (COHb) 0.3 gm% (0.0-3.0); Hemoglobin (Hb) 9.8 g/dL (12.0-16.0); O2 Tension (PaO2), arterial 48.5 mmHg (80.0-100.0); Potassium - ABG Lab 3.45 mmol/L (3.70-5.30); pH, Arterial 7.19 (7.35-7.45)
[2022-05-26 16:02] LABS: Puncture Site LBA
[2022-05-26 16:51] LABS: Troponin I 0.078 ng/mL (< 0.028)
[2022-05-26] MEDS ORDERED: NOREPINEPHRINE 8 MG/250 ML-D5W 250 ML IVPB SCH (17:00)
[2022-05-26 17:13] VITALS: TEMP 97.6
[2022-05-26] MEDS ORDERED: NOREPINEPHRINE 8 MG/250 ML-D5W 250 ML ONE (17:16)
[2022-05-26] MEDS ORDERED: Morphine 4 MG/ML VIAL SLOW IVP PRN (18:01)
[2022-05-26] MEDS ORDERED: Pantoprazole 40 MG VIAL IVP SCH (21:00)
== END 2022-05-26 18:42 | disposition expired | DRG 380 ==
LOC: ERS 06:22 → MSONC 11:23 → CCU 05-26 10:33
PROVIDERS: ADMIT Internal Medicine; ATTEND Family Medicine
PROC: 0DJ08ZZ Inspection of Upper Intestinal Tract, Via Natural or Artificial Opening Endoscopic (ICD-10-PCS; principal; 2022-05-26)
PROC: 0D9680Z Drainage of Stomach with Drainage Device, Via Natural or Artificial Opening Endoscopic (ICD-10-PCS; 2022-05-26)
PROC: 5A09357 Assistance with Respiratory Ventilation, Less than 24 Consecutive Hours, Continuous Positive Airway Pressure (ICD-10-PCS; 2022-05-26)
DX: K31.1 Adult hypertrophic pyloric stenosis (principal); J96.01 Acute respiratory failure with hypoxia; E43 Unspecified severe protein-calorie malnutrition; J90 Pleural effusion, not elsewhere classified; R18.8 Other ascites; N17.9 Acute kidney failure, unspecified; C79.51 Secondary malignant neoplasm of bone; C78.2 Secondary malignant neoplasm of pleura; I47.1 Supraventricular tachycardia; R57.9 Shock, unspecified; I10 Essential (primary) hypertension; Z20.822 Contact with and (suspected) exposure to COVID-19; C50.912 Malignant neoplasm of unspecified site of left female breast; C50.911 Malignant neoplasm of unspecified site of right female breast; K80.20 Calculus of gallbladder without cholecystitis without obstruction; Z66 Do not resuscitate; G25.81 Restless legs syndrome; D63.8 Anemia in other chronic diseases classified elsewhere; K22.2 Esophageal obstruction; K20.90 Esophagitis, unspecified without bleeding; Z90.710 Acquired absence of both cervix and uterus; Z90.49 Acquired absence of other specified parts of digestive tract; Z88.1 Allergy status to other antibiotic agents; Z79.899 Other long term (current) drug therapy; Z87.891 Personal history of nicotine dependence; Z68.25 Body mass index [BMI] 25.0-25.9, adult
CPT/HCPCS: 36415; 36600; 71045; 74176; 80053; 82550; 82728; 82805; 83540; 83550; 83690; 83735; 83880; 84100; 84484; 85025; 85046; 93005; 93010; 94660; 96361; 96374; 96375; C9113; J0282; J1170; J1200; J2250; J2270; J2405; J2543; J2550; J2704; J2765; J3010; J3475; J3490; J7042; J7070; J7120; U0002